=== PATIENT | male | born 1995 | race Caucasian/White ===

== ENCOUNTER 2018-11-10 08:31 | Emergency (ER) | payer OTHER ==
[2018-11-10] MEDS ORDERED: predniSONE TAB* 50 MG PO ONE (09:30)
[2018-11-10 09:36] LABS: Rapid Strep Molecular Negative (Negative)
--- NOTE | 2018-11-10 09:40 | ED ---
Throat Pain/Nasal Congestion - HPI Summary HPI Summary: Patient is a 23-year-old male presenting to the ED with feeling of lip swelling and throat pain. He also endorses a small amount of hives to the right elbow. He states symptoms have been present 2 days. He had an upper respiratory infection and has been taking Umcka for cold and cough symptoms. Side effects are known to include rashes and swollen lips is allergic reaction. He has never taken this in the past. He has had an allergic reaction to guaifenesin in the past. He states his cold symptoms have improved, however now is endorsing odynophagia without dysphagia and feeling of swollen lips. Denies any shortness of breath or CP. Denies any other symptoms. He has not taken anything [id number] for relief. - History of Current Complaint Chief Complaint: EDAllergicReaction Time Seen by Provider: 11/10/18 08:32 Hx Obtained From: Patient Onset/Duration: Sudden Onset Severity: Mild Associated Signs And Symptoms: Negative: Dysphagia, FB Sensation, Drooling, Wheezing, Hoarseness, Sinus Discomfort, Nasal Discharge - Epiglottits Risk Factors Epiglottis Risk Factors: Negative - Allergies/Home Medications Allergies/Adverse Reactions: Allergies Allergy/AdvReac Type Severity Reaction Status Date / Time cat dander Allergy Eyes Verified 11/10/18 08:36 Itchy/Swollen/Red/Watery guaifenesin [From Mucinex] Allergy Hives Verified 11/10/18 08:36 dust Allergy Sneezing Uncoded 11/10/18 08:36 PMH/Surg Hx/FS Hx/Imm Hx Previously Healthy: Yes - Immunization History Hx Pertussis Vaccination: No Immunizations Up to Date: Yes Infectious Disease History: No Infectious Disease History: Denies: Traveled Outside the [place] in Last 30 Days - Social History Occupation: Employed Part-time Lives: With Family Alcohol Use: Occasionally Hx Substance Use: No Substance Use Type: Reports: None Hx Tobacco Use: No Smoking Status (MU): Never Smoked Tobacco Review of Systems Constitutional: Negative Negative: Fever, Chills, Fatigue, Skin Diaphoresis Positive: Sore Throat. Negative: Dental Pain Negative: Palpitations, Chest Pain Negative: Shortness Of Breath, Cough Positive: Other - feeling of swollen lips Neurological: Negative All Other Systems Reviewed And Are Negative: Yes Physical Exam Triage Information Reviewed: Yes Vital Signs On Initial Exam: Initial Vitals Temp Pulse Resp BP Pulse Ox 99.1 F 94 18 128/80 98 11/10/18 08:32 11/10/18 08:32 11/10/18 08:32 11/10/18 08:32 11/10/18 08:32 Vital Signs Reviewed: Yes Appearance: Positive: Well-Appearing, No Pain Distress, Well-Nourished Skin: Positive: Warm, Skin Color Reflects Adequate Perfusion Head/Face: Positive: Temporal Artery Tenderness Eyes: Positive: EOMI, Conjunctiva Clear Neck: Positive: Supple, No Lymphadenopathy Respiratory/Lung Sounds: Positive: Clear to Auscultation, Breath Sounds Present Cardiovascular: Positive: RRR, Pulses are Symmetrical in both Upper and Lower Extremities. Negative: Leg Edema Left, Leg Edema Right Musculoskeletal: Positive: Strength/ROM Intact Neurological: Positive: Speech Normal Psychiatric: Positive: Affect/Mood Appropriate Diagnostics - Vital Signs Vital Signs Temp Pulse Resp BP Pulse Ox 11/10/18 08:32 99.1 F 94 18 128/80 98 - Laboratory Lab Statement: Any lab studies that have been ordered have been reviewed, and results considered in the medical decision making process. EENT Course/Dx - Course Course Of Treatment: Patient is evaluated for sore throat, small amount of hives to the right elbow and swollen lips. On physical examination, his lips do not appear to be swollen, however the inferior inner lip appears red without signs of herpetic signs. No evidence of airway compromise. Lungs CTA. RRR. Patient is given prednisone. Strep swab obtained and is negative. Patient states he would like to be discharged at this time. He is diagnosed with possible allergic reaction from his cold medicine, is given prednisone and hydroxyzine prescription. - Differential Diagnoses Differential Diagnoses: Other - Viral syndrome - Diagnoses Provider Diagnoses: Allergic reaction Discharge - Sign-Out/Discharge Documenting (check all that apply): Patient Departure Patient Received Moderate/Deep Sedation with Procedure: No - Discharge Plan Condition: Stable Disposition: HOME Prescriptions: hydrOXYzine HCL TAB* [Atarax 25 MG TAB*] 25 mg PO TID PRN #12 tab PRN Reason: Itching predniSONE TAB* [Deltasone TAB*] 50 mg PO DAILY #5 tab Patient Education Materials: Allergies (ED) Referrals: No Primary Care Phys,NOPCP [Primary Care Provider] - Additional Instructions: Prednisone once daily x 5 days hydroxyzine 25mg three times daily for allergy symptoms If symptoms worsen, please return to the ED Prednisone once daily x 5 days - Billing Disposition and Condition Condition: STABLE Disposition: Home
[2018-11-10 10:14] VITALS: BP 129/85
== END 2018-11-10 10:13 | disposition home or self-care (01) ==
LOC: ED 08:31
DX: R22.0 Localized swelling, mass and lump, head (principal); R07.0 Pain in throat; L50.9 Urticaria, unspecified; T48.5X5A Adverse effect of other anti-common-cold drugs, initial encounter; Y92.9 Unspecified place or not applicable
CPT/HCPCS: 87651; 99282; J7512